=== PATIENT | female | born 1940 | race Two or more races ===

== ENCOUNTER 2022-12-26 08:27 | Emergency (ER) | payer OTHER ==
[~2022-12-26] VITALS: Ht 154.9 cm; Wt 63.6 kg
[2022-12-26] MEDS ORDERED: SODIUM CHLORIDE 0.9% 500 ML IV ONE ×2 (08:45→14:15)
[2022-12-26 10:33] LABS: Hematocrit 31.2 % (36.0-46.0); Hemoglobin 10.3 g/dL (12.2-16.2); Mean Corpuscular Hemoglobin 34.1 pg (28.0-32.0); Mean Corpuscular Volume 103.1 fL (80.0-100.0); Red Blood Cells 3.02 10^6/uL (4.0-5.20); Red Cell Distribution Width 16.9 % (11.8-14.3); White Blood Cell 13.5 10^3/uL (4.4-10.8)
[2022-12-26 10:35] LABS: Band Neutrophils % (manual) 0; Basophils % (manual) 0 (0.0-2.0); Blast Cells 0; Myelocytes % 0; Promyelocytes % 0; Reactive Lymphocytes 0
[2022-12-26 10:49] LABS: Alanine Aminotransferase 21 U/L (7-40); Albumin 3.4 g/dL (3.2-4.8); Alkaline Phosphatase 83 U/L (46-116); Anion Gap 11 (5-15); Aspartate Aminotransferase 34 U/L (13-40); BUN/Creatinine Ratio 41.7 (10.0-20.0); Bilirubin, Total 0.4 mg/dL (0.2-1.0); Blood Urea Nitrogen 15 mg/dL (9-23); Calcium 8.2 mg/dL (8.7-10.4); Carbon Dioxide 21 mmol/L (20-30); Chloride 102 mmol/L (98-107); Glucose 71 mg/dL (74-106); Magnesium 1.9 mg/dL (1.6-2.6); Potassium 4.6 mmol/L (3.5-5.1); Sodium 134 mmol/L (136-145); Total Protein 5.2 g/dL (5.7-8.2)
[2022-12-26 12:53] LABS: Eosinophils % (manual) 1 (0-7); Lymphocytes % (manual) 11 (10.0-50.0); Metamyelocytes % 1; Monocytes % (manual) 8 (0-12); Platelet Estimate Increased
[2022-12-26 12:54] LABS: Macrocytosis Slight
[2022-12-26] MEDS ORDERED: cefTRIAXone 1GM/50ML D5W 50 ML IV ONE (14:15)
[2022-12-26 15:03] VITALS: PULSE 85; RESP 22; O2SAT 96
[2022-12-26 15:56] LABS: COVID19 ANTIGEN SOFIA FIA NEGATIVE (NEGATIVE)
[2022-12-26 16:35] LABS: Urine Bacteria NONE SEEN /hpf (None Seen); Urine Blood 2+ /uL (Negative); Urine Clarity CLOUDY (Clear); Urine Color Yellow (Yellow); Urine Mucus FEW (None Seen); Urine Protein, UAD 2+ (Negative); Urine Specific Gravity 1.018 (1.001-1.035); Urine Urobilinogen Normal (Negative); Urine WBC 4266 /hpf (0 - 5); Urine WBC Clumps PRESENT /hpf (None Seen)
[2022-12-26 20:00] VITALS: PULSE 95; RESP 20; O2SAT 92
[2022-12-26 21:42] VITALS: BP 112/46; PULSE 97; RESP 25; TEMP 98; O2SAT 98
[2022-12-26] MEDS ORDERED: ONDANSETRON HCL 4 MG/2 ML VIAL IM ONE (22:15)
[2022-12-26] MEDS ORDERED: MORPHINE SULFATE 4 MG/ML SYR/VIAL IM ONE (22:15)
== END 2022-12-26 23:06 | disposition short-term general hospital (02) ==
LOC: ER 08:27 → EDBD 08:27 → ER 22:20
DX: R41.82 Altered mental status, unspecified (principal); N39.0 Urinary tract infection, site not specified; R07.89 Other chest pain; I10 Essential (primary) hypertension; Z90.49 Acquired absence of other specified parts of digestive tract; Z90.89 Acquired absence of other organs; Z20.822 Contact with and (suspected) exposure to COVID-19
CPT/HCPCS: 36415; 71045; 80053; 81001; 83605; 83735; 85007; 85027; 87040; 87426; 93005; 96361; 96365; 99285; J0696

== ENCOUNTER 2023-12-30 13:12 | Inpatient (IN) | payer OTHER ==
[~2023-12-30] VITALS: Ht 170.2 cm; Wt 64.6 kg
--- NOTE | 2023-12-30 13:57 | ED.PDOC ---
GI ASSESSMENT HPI Comments 83 year old female OLEKSANDR presents to the ED with chief complaint of abdominal pain. Patient reports that she has been experience 8/10 epigastric abdominal pain with associated nausea, vomiting, and diarrhea for the past 2 days. Patient relays that she has had 10 episodes of watery diarrhea today. Patient denies any fever, chills, dizziness, hematemesis, melena, or chest pain. Chief Complaint: Abdominal Pain Time Seen by MD: 13:54 Primary Care Provider: SEN Reviewed Notes: Nurses Notes, Medications, Allergies Allergies: Coded Allergies: NO KNOWN ALLERGIES (Unverified , 12/26/22) Information Source: Patient Mode of Arrival: EMS Timing: Days Duration: Since onset Prehospital treatment: None Quality: Sharp Vomitus: Watery Stool: Watery Severity: Moderate Recent: None Recent Hx of: None Pain Location: Epigastric Modifying Factors: Nothing Associated sign and symptoms: Nausea, Vomiting, Diarrhea, Abdominal Pain Past Medical History PAST MEDICAL HISTORY: HTN, UTI'S Surgical History: Cholecystectomy, Tonsillectomy 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 Family History Family History: Unknown Social History Smoker: Non-Smoker Alcohol: Denies ETOH Use Drugs: Denies Drug Use Lives In: Home Constitutional: denies: chills, diaphoresis, fatigue, fever, malaise, sweats, weakness, others EENTM: denies: blurred vision, double vision, ear bleeding, ear discharge, ear drainage, ear pain, ear ringing, eye pain, eye redness, hearing loss, mouth pain, mouth swelling, nasal discharge, nose bleeding, nose congestion, nose pain, photophobia, tearing, throat pain, throat swelling, voice changes, others Respiratory: denies: cough, hemoptysis, orthopnea, SOB at rest, shortness of breath, SOB with excertion, stridor, wheezing, others Cardiovascular: denies: chest pain, dizzy spells, diaphoresis, Dyspnea on exertion, edema, irregular heart beat, left arm pain, lightheadedness, palpitations, PND, syncope, others Gastrointestinal: reports: abdominal pain, diarrhea, nausea, vomiting; denies: abdomen distended, blood streaked bowels, constipated, dysphagia, difficulty swallowing, hematemesis, melena, poor appetite, poor fluid intake, rectal bleeding, rectal pain, others Genitourinary: denies: abnormal vagina bleeding, burning, dyspareunia, dysuria, flank pain, frequency, hematuria, incontinence, pain, , vagina discharge, urgency, others Neurological: denies: dizziness, fainting, headache, left sided numbness, left sided weakness, numbness, paresthesia, pre-existing deficit, right sided numbness, right sided weakness, seizure, speech problems, tingling, tremors, weakness, others Musculoskeletal: denies: back pain, gout, joint pain, joint swelling, muscle pain, muscle stiffness, neck pain, others Integumetry: denies: bruises, change in color, change in hair/nails, dryness, laceration, lesions, lumps, rash, wounds, others Allergic/Immunocompromised: denies: Difficulty Healing, Frequent Infections, Hives, Itching, others Hematologic/Lymphatic: denies: anemia, blood clots, easy bleeding, easy bruising, swollen glands, others Endocrine: denies: excessive hunger, excessive sweating, excessive thirst, excessive urination, flushing, intolerance to cold, intolerance to heat, unexp lained weight gain, unexplained weight loss, others Psychiatric: denies: anxiety, bipolar disorder, depression, hopeless, panic disorder, schizophrenia, sleepless, suicidal, others All Other Systems: Reviewed and Negative Physical Exam General Appearance: Moderate Distress, Obese HEENT: Normal ENT Inspection, PERRL/EOMI Neck: Full Range of Motion, Non-Tender, Normal, Normal Inspection Respiratory: Chest Non-Tender, Lungs Clear, No Accessory Muscle Use, No Respiratory Distress, Normal Breath Sounds Cardiovascular: No Edema, No JVD, No Murmur, No Gallop, Normal Peripheral Pulses, Regular Rate/Rhythm Breast Exam: Deferred Gastrointestinal: No Organomegaly, No Pulsatile Mass, Normal Bowel Sounds, Soft, Tenderness (Epigastric tenderness) Genitalia: Deferred Pelvic: Deferred Rectal: Deferred Extremities: No calf tenderness, Normal capillary refill, Normal inspection, Normal range of motion, Non-tender, No pedal edema Musculoskeletal : Apperance: Normal Neurologic: Alert, ict support and test engineers II-XII nml as Tested, No Motor Deficits, Normal Affect, Normal Mood, No Sensory Deficits Cerebellar Function: Normal Reflexes: Normal Skin: Dry, Normal Color, Warm Lymphatic: No Adenopathy Was a procedure done? Was a procedure done?: No GI differential Dx Differential Diagnosis: Gastritis/PUD, Gastroenteritis, UTI, Electrolyte Imbalance, Food Poisoning X-Ray, Labs, Meds, VS Vital Signs Date Time Temp Pulse Resp B/P (MAP) Pulse Ox O2 Delivery O2 Flow Rate FiO2 12/30/23 21:30 93 17 99/49 (66) 99 12/30/23 20:00 95 12/30/23 19:30 98.3 105 14 95/57 (70) 100 98.3 12/30/23 13:20 99 12/30/23 13:15 98.7 102 18 100/70 (80) 94 Lab Test 12/30/23 20:22 12/30/23 13:41 Range/Units Urine Color Light-yellow Yellow Urine Clarity Clear Clear Urine pH 5.5 5.0-9.0 Urine Specific [place] > 1.050 H 1.001-1.035 Urine Protein Trace H Negative Urine Ketones Negative Negative Urine Blood 1+ H Negative /uL Urine Nitrite 2+ H Negative Urine Bilirubin Negative Negative Urine Urobilinogen Normal Negative mg/dL Urine Leukocyte Esterase 3+ Negative /uL Urine RBC 9 0 - 4 /hpf Urine WBC 100 0 - 5 /hpf Urine Squamous Epithelial Cells Few <5 /hpf Urine Bacteria Few H None Seen /hpf Urine Mucus Few None Seen Urine Glucose Normal Normal mg/dL White Blood Count 12.2 H 4.4-10.8 10^3/uL Red Blood Count 4.47 4.0-5.20 10^6/uL Hemoglobin 13.2 12.2-16.2 g/dL Hematocrit 40.4 36.0-46.0 % Mean Corpuscular Volume 90.5 80.0-100.0 fL Mean Corpuscular Hemoglobin 29.5 28.0-32.0 pg Mean Corpuscular Hemoglobin Concent 32.6 32.0-36.0 g/dL Red Cell Distribution Width 19.9 H 11.8-14.3 % Platelet Count 401 140-450 10^3/uL Mean Platelet Volume 7.1 6.9-10.8 fL Neutrophils (%) (Auto) 37.0-80.0 % Lymphocytes (%) (Auto) 10.0-50.0 % Monocytes (%) (Auto) 0.0-12.0 % Basophils (%) (Auto) 0.0-2.0 % Neutrophils # (Auto) 1.6-8.6 10 ^3/uL Lymphocytes # (Auto) 0.4-5.4 10 ^3/uL Monocytes # (Auto) 0-1.3 10 ^3/uL Differential Total Cells Counted 100.0 100 Neutrophils % (Manual) 92 H 37.0-80.0 Band Neutrophils % (Manual) 0 Lymphocytes % (Manual) 3 L 10.0-50.0 Monocytes % (Manual) 5 0-12 Eosinophils % (Manual) 0 0-7 Basophils % (Manual) 0 0.0-2.0 Metamyelocytes % (manual) 0 Myelocytes % (Manual) 0 Promyelocytes % (Manual) 0 Blast Cells % (Manual) 0 Reactive Lymphocytes 0 Platelet Estimate Adequate Red Blood Cell Morphology Normal Sodium Level 143 136-145 mmol/L Potassium Level 3.7 3.5-5.1 mmol/L Chloride Level 106 98-107 mmol/L Carbon Dioxide Level 26 20-31 mmol/L Anion Gap 11 5-15 Blood Urea Nitrogen 35 H 9-23 mg/dL Creatinine 0.73 0.550-1.02 mg/dL Glomerular Filtration Rate Calc 81 >90 mL/min BUN/Creatinine Ratio 47.9 H 10.0-20.0 Serum Glucose 133 H 74-106 mg/dL Calcium Level 9.4 8.7-10.4 mg/dL Total Bilirubin 0.9 0.2-1.0 mg/dL Aspartate Amino Transferase (AST) 19 13-40 U/L Alanine Aminotransferase (ALT) 22 7-40 U/L Alkaline Phosphatase 53 46-116 U/L Troponin I High Sensitivity 13 </=34 ng/L Total Protein 6.7 5.7-8.2 g/dL Albumin 4.3 3.2-4.8 g/dL Lipase 39 12-53 U/L Current Medications Medications (Trade) Dose Ordered Sig/Anette Route Start Time Stop Time Status Last Admin Sodium Chloride 1,000 ml @ 1,000 mls/hr Q1H ONCE IV 12/30/23 13:30 12/30/23 14:29 DC 12/30/23 16:21 Ondansetron HCl (Zofran) 4 mg ONCE ONCE IV 12/30/23 13:30 12/30/23 13:31 DC 12/30/23 16:05 Famotidine (Pepcid Injection) 20 mg ONCE ONCE IV 12/30/23 13:30 12/30/23 13:31 DC 12/30/23 16:05 CT Chest/Abd/Pel W/ IV Con: Impression: Chest: 1. No acute cardiopulmonary disease. 2. 0.8 cm pulmonary nodule along the right lung base. Recommend an outpatient dedicated CT chest for further evaluation. 3. Moderate hiatal hernia. Abdomen: 1. No acute abdominopelvic abnormalities. 2. Diverticulosis without evidence of acute diverticulitis. 3. Mild left hydronephrosis. IV Hep-Lock was established. The patient was given a bolus of normal saline at 1 L The patient was given Zofran 4 mg IV push for the nausea and vomiting The patient was given Pepcid 20 mg IV push. The CBC shows an elevated white blood cell count of 12.2. The rest of the CBC and chemistry panel are within normal limits. The urine test is positive for significant UTI. The patient was remained somewhat hypotensive. We did contact [facility] and they did give authorization for admission The authorization #[id number] The patient was being admitted at this time. Images Reviewed?: Images reviewed and evaluated by me Time of 1ST Reevaluation: 14:54 Reevaluation 1ST: Unchanged Patient Education/Counseling: Diagnosis, Treatment, Prognosis Family Education/Counseling: No Family Present Departure 1 Departure Time of Disposition: 22:01 Impression: Primary Impression: Dehydration Additional Impressions: Hypotension Qualified Codes: I95.9 - Hypotension, unspecified UTI (urinary tract infection) Qualified Codes: N30.01 - Acute cystitis with hematuria Disposition: ADMITTED INPATIENT [facility]mit to: [facility] Condition: Fair Critical Care Note Critical Care Time?: Yes (45 min-critical care time only) Stability Stability form required: Yes Unstable for transfer: Telemetry monitoring (Telemetry monitoring required), ED Physician Assesment (Clinical assesment) Heart Score Heart Score: Heart Score Response (Comments) Value History N/A 0 EKG N/A 0 Age N/A 0 Risk Factors N/A 0 Troponin N/A 0 Total 0 I personally scribed for DUSTIN AMAYA MD ([email or web address]) on 12/30/23 at 13:57. Electronically submitted by Enrique Cuadra ([email or web address]). I personally scribed for DUSTIN AMAYA MD ([email or web address]) on 12/30/23 at 16:31. Electronically submitted by Enrique Cuadra ([email or web address]). DUSTIN AMAYA MD Dec 30, 2023 13:57 NICOLE CASAREZ MD Dec 30, 2023 22:03
[2023-12-30 14:05] LABS: Hematocrit 40.4 % (36.0-46.0); Hemoglobin 13.2 g/dL (12.2-16.2); Mean Corpuscular Hemoglobin 29.5 pg (28.0-32.0); Mean Corpuscular Hgb Conc. 32.6 g/dL (32.0-36.0); Mean Corpuscular Volume 90.5 fL (80.0-100.0); Platelet Count (auto) 401 10^3/uL (140-450); Red Blood Cells 4.47 10^6/uL (4.0-5.20); Red Cell Distribution Width 19.9 % (11.8-14.3); White Blood Cell 12.2 10^3/uL (4.4-10.8)
[2023-12-30 14:12] LABS: Band Neutrophils % (manual) 0; Basophils % (manual) 0 (0.0-2.0); Blast Cells 0; Eosinophils % (manual) 0 (0-7); Metamyelocytes % 0; Myelocytes % 0; Promyelocytes % 0; Reactive Lymphocytes 0
[2023-12-30 14:19] LABS: Alanine Aminotransferase 22 U/L (7-40); Albumin 4.3 g/dL (3.2-4.8); Alkaline Phosphatase 53 U/L (46-116); Anion Gap 11 (5-15); Aspartate Aminotransferase 19 U/L (13-40); BUN/Creatinine Ratio 47.9 (10.0-20.0); Blood Urea Nitrogen 35 mg/dL (9-23); Calcium 9.4 mg/dL (8.7-10.4); Carbon Dioxide 26 mmol/L (20-31); Chloride 106 mmol/L (98-107); Glucose 133 mg/dL (74-106); Lipase 39 U/L (12-53); Potassium 3.7 mmol/L (3.5-5.1); Sodium 143 mmol/L (136-145)
[2023-12-30 14:20] LABS: Bilirubin, Total 0.9 mg/dL (0.2-1.0); Total Protein 6.7 g/dL (5.7-8.2)
[2023-12-30 14:34] LABS: Lymphocytes % (manual) 3 (10.0-50.0); Monocytes % (manual) 5 (0-12); Platelet Estimate Adequate
[2023-12-30 14:35] LABS: RBC Morphology Normal
[2023-12-30] MEDS: IOHEXOL 300 MG/ML 100ML BOTTLE IJ ONE (15:36)
[2023-12-30] MEDS: ONDANSETRON HCL 4 MG/2 ML VIAL IV ONE (16:05)
[2023-12-30] MEDS: FAMOTIDINE (10MG/ML) 2ML VL IV ONE (16:05)
[2023-12-30] MEDS: SODIUM CHLORIDE 0.9% 1,000 ML IV ONE (16:21)
--- NOTE | 2023-12-30 16:28 | DVH ---
CT CT CHEST/AB/PL W CON- IV ONLY HISTORY: abdominal pain Comparison Study: None TECHNIQUE: Multidetector CT of the chest, abdomen and pelvis was performed from lower neck to pubic s ymphysis with the use of intravenous contrast. Axial, coronal and sagittal multiplanar reformats were performed by the technologist on a separate workstation. Radiation Dose : CTDI vol 6.41 mGy, DLP 403.31 mGy*cm. Findings: Chest: Lungs: 0.8 cm pulmonary nodule along the right lung base. Pleura: Unremarkable Heart/Great vessels: The visualized heart is unremarkable. No cardiomegaly or pericardial effusion. Mediastinum: Moderate hiatal hernia Soft tissues/Bones: Mild degenerative changes of the thoracic spine. Abdomen: Liver: Unremarkable. Gallbladder: Unremarkable. Spleen: Unremarkable Pancreas: Unremarkable Adrenals: Unremarkable Kidneys: Mild left hydronephrosis. GI tract: Diverticulosis without evidence of acute diverticulitis. : Myomatous uterus Vasculature: Unremarkable Lymphadenopathy: Absent Peritoneum: No ascites Musculoskeletal: Moderate multilevel degenerative changes of the thoracolumbar spine. Posterior spina l fusion L3-S1. Soft tissues: Unremarkable Impression: Chest: 1. No acute cardiopulmonary disease. 2. 0.8 cm pulmonary nodule along the right lung base. Recommend an outpatient dedicated CT chest for further evaluation. 3. Moderate hiatal hernia. Abdomen: 1. No acute abdominopelvic abnormalities. 2. Diverticulosis without evidence of acute diverticulitis. 3. Mild left hydronephrosis.
[2023-12-30 20:42] LABS: Urine Bacteria FEW /hpf (None Seen); Urine Blood 1+ /uL (Negative); Urine Clarity Clear (Clear); Urine Color Light-Yellow (Yellow); Urine Mucus FEW (None Seen); Urine Protein, UAD TRACE (Negative); Urine Urobilinogen Normal (Negative); Urine WBC 100 /hpf (0 - 5); Urine pH 5.5 (5.0-9.0)
[2023-12-30 20:44] LABS: Urine Specific Gravity > 1.050 (1.001-1.035)
[2023-12-30] MEDS: SODIUM CHLORIDE 0.9% 500 ML IV ONE (22:00)
[2023-12-30] MEDS ORDERED: ACETAMINOPHEN 325 MG TAB PO PRN (23:15)
[2023-12-30] MEDS: cefTRIAXone 1GM/50ML D5W 50 ML IV ONE (23:58)
[2023-12-31] MEDS: HYDROcodone-ACET 5/325MG TAB PO PRN (00:51)
[2023-12-31] MEDS: MORPHINE SULFATE INJ 2 MG/ml SYRG IV ONE (00:57)
[2023-12-31] MEDS: SODIUM CHLORIDE 0.9% 500 ML IV ONE (02:45)
[2023-12-31 03:57] VITALS: PULSE 79; RESP 16; O2SAT 96
--- NOTE | 2023-12-31 05:27 | DVHHP2 ---
History of Present Illness Reason for Visit: Nausea and vomiting History of Present Illness 83-year-old female initially presented with complaints of nausea and vomiting. Patient reports a one day history of episodes of nausea, vomiting and several episodes of diarrhea. She denies abdominal pain. She states currently the sym ptoms have subsided. She does report mild dysuria. Denies fever or chills. No other acute complaints reported. Past Medical History Hypertension Past Surgical History Tonsillectomy and cholecystectomy Family History Noncontributory Smoke: No ALCOHOL: none Drugs: None Review of Systems Review of Systems Review of systems are currently negative otherwise addressed in HPI. Allergies: Coded Allergies: NO KNOWN ALLERGIES (Unverified , 12/26/22) Medications Current Medications Medications Dose Ordered Sig/Anette Route Start Time Stop Time Status Last Admin Dose Admin Ceftriaxone Sodium 50 ml @ 100 mls/hr DAILY@2200 IV 12/31/23 22:00 Acetaminophen/ Hydrocodone Bitart 1 tab Q4HP PRN PO 12/30/23 23:15 12/31/23 00:51 1 TAB Ondansetron HCl 4 mg Q4HP PRN IV 12/30/23 23:15 Acetaminophen 650 mg Q6HP PRN PO 12/30/23 23:15 Exam Vital Signs Vital Signs Date Time Temp Pulse Resp B/P (MAP) Pulse Ox O2 Delivery O2 Flow Rate FiO2 12/31/23 03:57 79 16 96 Room Air* 0 21 21 12/31/23 03:30 92/42 (59) 12/30/23 19:30 98.3 98.3 Exam Gen: 83-year-old female in mild distress Skin: Warm, dry, normal color and texture, no rash. HEENT: Normocephalic atraumatic, mucous membranes moist and pink. Neck: Cervical and supraclavicular nodes normal without enlargement, trachea is midline, thyroid gland is normal without masses. Pulmonary: Clear to auscultation and percussion bilaterally. Cardiac: Regular rate and rhythm. No murmur Abdomen: Soft, nontender, nondistended, bowel sounds present all 4 quadrants, no guarding, no rigidity, no organomegaly. Extremities: No cyanosis, clubbing, no edema Neuro: Cranial nerves II through XII grossly intact, normal affect and speech, no focal motor deficits. Labs/Xrays ORDERING PHYSICIAN: DUSTIN AMAYA MD PROCEDURE(s): CAPIV - CT CHEST/AB/PL W CON- IV ONLY REASON: abdominal pain ORDER NUMBER(s): [id number], ACCESSION NUMBER(s): [id number] CT CT CHEST/AB/PL W CON- IV ONLY HISTORY: abdominal pain Comparison Study: None TECHNIQUE: Multidetector CT of the chest, abdomen and pelvis was performed from lower neck to pubic symphysis with the use of intravenous contrast. Axial, coronal and sagittal multiplanar reformats were performed by the technologist on a separate workstation. Radiation Dose : CTDI vol 6.41 mGy, DLP 403.31 mGy*cm. Findings: Chest: Lungs: 0.8 cm pulmonary nodule along the right lung base. Pleura: Unremarkable Heart/Great vessels: The visualized heart is unremarkable. No cardiomegaly or pericardial effusion. Mediastinum: Moderate hiatal hernia Soft tissues/Bones: Mild degenerative changes of the thoracic spine. Abdomen: Liver: Unremarkable. Gallbladder: Unremarkable. Spleen: Unremarkable Pancreas: Unremarkable Adrenals: Unremarkable Kidneys: Mild left hydronephrosis. GI tract: Diverticulosis without evidence of acute diverticulitis. : Myomatous uterus Vasculature: Unremarkable Lymphadenopathy: Absent Peritoneum: No ascites Musculoskeletal: Moderate multilevel degenerative changes of the thoracolumbar spine. Posterior spinal fusion L3-S1. Soft tissues: Unremarkable Impression: Chest: 1. No acute cardiopulmonary disease. 2. 0.8 cm pulmonary nodule along the right lung base. Recommend an outpatient dedicated CT chest for further evaluation. 3. Moderate hiatal hernia. Abdomen: 1. No acute abdominopelvic abnormalities. 2. Diverticulosis without evidence of acute diverticulitis. 3. Mild left hydronephrosis. Labs Test 12/30/23 23:25 12/30/23 20:22 12/30/23 13:41 Range/Units Lactic Acid Level 1.3 0.4-2.0 mmol/L Urine Color Light-yellow Yellow Urine Clarity Clear Clear Urine pH 5.5 5.0-9.0 Urine Specific [place] > 1.050 H 1.001-1.035 Urine Protein Trace H Negative Urine Ketones Negative Negative Urine Blood 1+ H Negative /uL Urine Nitrite 2+ H Negative Urine Bilirubin Negative Negative Urine Urobilinogen Normal Negative mg/dL Urine Leukocyte Esterase 3+ Negative /uL Urine RBC 9 0 - 4 /hpf Urine WBC 100 0 - 5 /hpf Urine Squamous Epithelial Cells Few <5 /hpf Urine Bacteria Few H None Seen /hpf Urine Mucus Few None Seen Urine Glucose Normal Normal mg/dL White Blood Count 12.2 H 4.4-10.8 10^3/uL Red Blood Count 4.47 4.0-5.20 10^6/uL Hemoglobin 13.2 12.2-16.2 g/dL Hematocrit 40.4 36.0-46.0 % Mean Corpuscular Volume 90.5 80.0-100.0 fL Mean Corpuscular Hemoglobin 29.5 28.0-32.0 pg Mean Corpuscular Hemoglobin Concent 32.6 32.0-36.0 g/dL Red Cell Distribution Width 19.9 H 11.8-14.3 % Platelet Count 401 140-450 10^3/uL Mean Platelet Volume 7.1 6.9-10.8 fL Neutrophils (%) (Auto) 37.0-80.0 % Lymphocytes (%) (Auto) 10.0-50.0 % Monocytes (%) (Auto) 0.0-12.0 % Basophils (%) (Auto) 0.0-2.0 % Neutrophils # (Auto) 1.6-8.6 10 ^3/uL Lymphocytes # (Auto) 0.4-5.4 10 ^3/uL Monocytes # (Auto) 0-1.3 10 ^3/uL Differential Total Cells Counted 100.0 100 Neutrophils % (Manual) 92 H 37.0-80.0 Band Neutrophils % (Manual) 0 Lymphocytes % (Manual) 3 L 10.0-50.0 Monocytes % (Manual) 5 0-12 Eosinophils % (Manual) 0 0-7 Basophils % (Manual) 0 0.0-2.0 Metamyelocytes % (manual) 0 Myelocytes % (Manual) 0 Promyelocytes % (Manual) 0 Blast Cells % (Manual) 0 Reactive Lymphocytes 0 Platelet Estimate Adequate Red Blood Cell Morphology Normal Sodium Level 143 136-145 mmol/L Potassium Level 3.7 3.5-5.1 mmol/L Chloride Level 106 98-107 mmol/L Carbon Dioxide Level 26 20-31 mmol/L Anion Gap 11 5-15 Blood Urea Nitrogen 35 H 9-23 mg/dL Creatinine 0.73 0.550-1.02 mg/dL Glomerular Filtration Rate Calc 81 >90 mL/min BUN/Creatinine Ratio 47.9 H 10.0-20.0 Serum Glucose 133 H 74-106 mg/dL Calcium Level 9.4 8.7-10.4 mg/dL Total Bilirubin 0.9 0.2-1.0 mg/dL Aspartate Amino Transferase (AST) 19 13-40 U/L Alanine Aminotransferase (ALT) 22 7-40 U/L Alkaline Phosphatase 53 46-116 U/L Troponin I High Sensitivity 13 </=34 ng/L Total Protein 6.7 5.7-8.2 g/dL Albumin 4.3 3.2-4.8 g/dL Lipase 39 12-53 U/L Assessment/Plan Assessment/Plan Assessment Complicated UTI SIRS Hypotension Leukocytosis Plan Admit the patient to [facility] to the hospitalist Rocephin Normal saline bolus Stool bacterial culture pending. Continue treatment per orders. Plan discussed with: Patient My Orders Orders - LAURA MARTIN Procedure Category Date Status Time Ceftriaxone 1gm/50ml PHA 12/31/23 In Process D5w (Rocephin) 22:00 Basic Metabolic Panel LAB 12/31/23 Logged 04:00 Admit ADMIT 12/30/23 Transmitted 23:05 Hydrocodone-Acet PHA 12/30/23 In Process 5/325mg Tab ([place] 23:15 Ondansetron Hcl PHA 12/30/23 In Process (Zofran) 23:15 Complete Blood Count LAB 12/31/23 Logged 04:00 Cardiac DIET 12/31/23 Transmitted Diet-2gna,Lofat,Lochol Breakfast Condition: Stable KWAKU 12/30/23 In Process 23:05 Acetaminophen Tablet PHA 12/30/23 In Process (Tylenol Tablet) 23:15 Bedrest With Bathroom KWAKU 12/30/23 In Process Privileg 23:05 Stool Bacterial EBONY 12/31/23 Uncollected Culture 05:20 Date of Service: Dec 30, 2023 Billing Provider: LAURA MARTIN Common Visit Codes: [id number] INP/OBS CARE (MOD), [id number] INP/OBS CARE (HIGH) LAURA MARTIN Dec 31, 2023 05:27
[2023-12-31 06:06] LABS: Basophils # (auto) 0 10 ^3/uL (0-0.2); Basophils % (auto) 0.3 % (0.0-2.0); Eosinophils # (auto) 0 10 ^3/uL (0-0.8); Eosinophils % (auto) 0.2 % (0.0-7.0); Hematocrit 32.3 % (36.0-46.0); Hemoglobin 10.4 g/dL (12.2-16.2); Lymphocytes # (auto) 0.6 10 ^3/uL (0.4-5.4); Lymphocytes % (auto) 7.1 % (10.0-50.0); Mean Corpuscular Hemoglobin 29.5 pg (28.0-32.0); Mean Corpuscular Hgb Conc. 32.1 g/dL (32.0-36.0); Mean Corpuscular Volume 91.8 fL (80.0-100.0); Monocytes # (auto) 0.6 10 ^3/uL (0-1.3); Monocytes % (auto) 6.8 % (0.0-12.0); Neutrophils % (auto) 85.6 % (37.0-80.0); Nucleated Red Blood Cells % 0.1 %; Platelet Count (auto) 308 10^3/uL (140-450); Red Blood Cells 3.52 10^6/uL (4.0-5.20); Red Cell Distribution Width 19.2 % (11.8-14.3); White Blood Cell 8.1 10^3/uL (4.4-10.8)
[2023-12-31 06:23] LABS: Chloride 110 mmol/L (98-107); Potassium 3.1 mmol/L (3.5-5.1); Sodium 142 mmol/L (136-145)
[2023-12-31 06:24] LABS: Anion Gap 9 (5-15); Carbon Dioxide 23 mmol/L (20-31)
[2023-12-31 06:25] LABS: Calcium 7.8 mg/dL (8.7-10.4)
[2023-12-31 06:29] LABS: BUN/Creatinine Ratio 38.3 (10.0-20.0); Blood Urea Nitrogen 23 mg/dL (9-23); Glucose 79 mg/dL (74-106)
[2023-12-31 08:00] VITALS: PULSE 78; RESP 77; O2SAT 94
[2023-12-31] MEDS: POTASSIUM CHL 20 Meq TABLET PO ONE (08:29)
--- NOTE | 2023-12-31 12:18 | DVHPN2 ---
Subjective 83-YEAR-OLD FEMALE CAME TO THE EMERGENCY ROOM DUE TO COMPLAINTS OF NAUSEA AND VOMITING AND DIARRHEA SHE SAYS SHE HAD DIARRHEA FOR 2 DAYS MULTIPLE TIMES A DAY HER POTASSIUM IS LOW HER BLOOD PRESSURE WAS ALSO LOW SHE HAS MILD ABDOMINAL PAIN Changes from previous H/P or p: Changes Objective Vitals Vital Signs Date Time Temp Pulse Resp B/P (MAP) Pulse Ox O2 Delivery O2 Flow Rate FiO2 12/31/23 10:04 97.8 77 16 120/78 (92) 98 97.8 12/31/23 08:00 Nasal Cannula* 2 28 General Appearance: Alert, Oriented X3, Cooperative, No acute distress Lungs: Clear to auscultation, Normal air movement Cardiovascular: Regular rate, Normal S1, Normal S2, No murmurs Abdomen: Normal bowel sounds, Soft, No tenderness Extremities: No edema Medications Current Medications Medications Dose Ordered Sig/Anette Route Start Time Stop Time Status Last Admin Dose Admin Ceftriaxone Sodium 50 ml @ 100 mls/hr DAILY@2200 IV 12/31/23 22:00 Acetaminophen/ Hydrocodone Bitart 1 tab Q4HP PRN PO 12/30/23 23:15 12/31/23 00:51 1 TAB Ondansetron HCl 4 mg Q4HP PRN IV 12/30/23 23:15 Acetaminophen 650 mg Q6HP PRN PO 12/30/23 23:15 Sodium Chloride 1,000 ml @ 60 mls/hr [id number] IV 12/31/23 12:00 Laboratory Results Laboratory Tests 12/31/23 05:16 Chemistry Test 12/30/23 13:41 12/31/23 05:16 Albumin 4.3 g/dL (3.2-4.8) Calcium Level 9.4 mg/dL (8.7-10.4) 7.8 mg/dL (8.7-10.4) L Total Protein 6.7 g/dL (5.7-8.2) Lipid panel Test 12/30/23 13:41 Lipase 39 U/L (12-53) LFT Test 12/30/23 13:41 Alanine Aminotransferase (ALT) 22 U/L (7-40) Alkaline Phosphatase 53 U/L (46-116) Aspartate Amino Transferase (AST) 19 U/L (13-40) Total Bilirubin 0.9 mg/dL (0.2-1.0) Urinalysis Test 12/30/23 20:22 Urine Color Light-yellow (Yellow) Urine Clarity Clear (Clear) Urine pH 5.5 (5.0-9.0) Urine Specific [place] > 1.050 (1.001-1.035) Urine Protein Trace (Negative) H Urine Ketones Negative (Negative) Urine Blood 1+ /uL (Negative) H Urine Nitrite 2+ (Negative) H Urine Bilirubin Negative (Negative) Urine Urobilinogen Normal mg/dL (Negative) Urine Leukocyte Esterase 3+ /uL (Negative) Urine RBC 9 /hpf (0 - 4) Urine WBC 100 /hpf (0 - 5) Urine Squamous Epithelial Cells Few /hpf (<5) Urine Bacteria Few /hpf (None Seen) H Urine Mucus Few (None Seen) Urine Glucose Normal mg/dL (Normal) Assessment/Plan Assessment/Plan DIARRHEA UTI HYPOKALEMIA SIRS ACUTE KIDNEY INJURY DIVERTICULOSIS LEFT HYDRONEPHROSIS ABDOMINAL PAIN PERIPHERAL NEUROPATHY HYPERTENSION PLAN CONTINUE IV FLUIDS CHANGE DIET TO CLEAR LIQUIDS CONTINUE IV ROCEPHIN GET THE STOOL SPECIMEN FOR C DIFF CHECK INFLUENZA AND COVID REPLACE POTASSIUM NOT STABLE FOR TRANSFER FULL CODE ADVANCE DIRECTIVES DISCUSSED FOR MORE THAN 20 MINUTES Plan discussed with: Patient My Orders Orders - CLAIRE BARKER MD Procedure Category Date Status Time Urine Bacterial EBONY 12/31/23 In Process Culture 11:59 Sodium Chloride 0.9% PHA 12/31/23 In Process 12:00 Date of Service: Dec 31, 2023 Billing Provider: CLAIRE BARKER MD Common Visit Codes: [id number] INP/OBS CARE(HIGH) Secondary Visit Codes: [id number] CARE PLAN 30 MINUTES CLAIRE BARKER MD Dec 31, 2023 12:18
[2023-12-31] MEDS: SODIUM CHLORIDE 0.9% 1,000 ML IV SCH (12:22)
[2023-12-31] MEDS: ONDANSETRON HCL 4 MG/2 ML VIAL IV PRN (12:22)
--- NOTE | 2023-12-31 12:34 | ECG ---
[facility] Test Date: 2023-12-30 Test Time: 13:20:58 Pat Name: NICOLE JOHNSON Department: ED Room: 0245 Gender: F Corporate Controller: GINA : 1940 Requested By: DUSTIN AMAYA Order Number: [id number] Reading MD: Inocente Dickerson Measurements Intervals [place] Rate: 99 P: 41 ND: 142 QRS: -53 QRSD: 113 T: 121 QT: 358 QTc: 460 Interpretive Statements Sinus tachycardia Multiple premature complexes, vent & supraven Probable left atrial enlargement LVH with IVCD, LAD and secondary repol abnrm Baseline wander in lead(s) V3 Electronically Signed On 01-01-2024 17:36:57 PST by Inocente Dickerson Please click the below link to view image of tracing.
[2023-12-31 13:07] LABS: COVID19 ANTIGEN SOFIA FIA NEGATIVE (NEGATIVE)
[2023-12-31 13:08] LABS: Rapid Influenza A Negative (Negative); Rapid Influenza B Negative (Negative)
[2023-12-31] MEDS: GABAPENTIN 100 MG CAP PO SCH (13:39)
[2023-12-31 14:30] VITALS: BP 119/67; PULSE 77; RESP 15; TEMP 98; O2SAT 94
[2023-12-31 14:32] VITALS: BP 116/58; PULSE 72; RESP 17; TEMP 98.4; O2SAT 95
[2023-12-31 17:15] VITALS: BP 116/58; PULSE 72; RESP 17; TEMP 98.4
[2023-12-31 21:00] VITALS: BP 126/63; PULSE 83; RESP 20; TEMP 98.4; O2SAT 98
[2023-12-31] MEDS: cefTRIAXone 1GM/50ML D5W 50 ML IV SCH (22:28)
[2024-01-01 05:14] VITALS: BP 127/64; PULSE 80; RESP 20; TEMP 98.7; O2SAT 98
[2024-01-01 06:19] LABS: Basophils # (auto) 0 10 ^3/uL (0-0.2); Basophils % (auto) 0.5 % (0.0-2.0); Eosinophils # (auto) 0 10 ^3/uL (0-0.8); Eosinophils % (auto) 0.6 % (0.0-7.0); Hematocrit 34.2 % (36.0-46.0); Hemoglobin 10.8 g/dL (12.2-16.2); Lymphocytes # (auto) 0.8 10 ^3/uL (0.4-5.4); Lymphocytes % (auto) 9.9 % (10.0-50.0); Mean Corpuscular Hemoglobin 29.5 pg (28.0-32.0); Mean Corpuscular Hgb Conc. 31.5 g/dL (32.0-36.0); Mean Corpuscular Volume 93.5 fL (80.0-100.0); Monocytes # (auto) 0.7 10 ^3/uL (0-1.3); Neutrophils # (auto) 6.6 10 ^3/uL (1.6-8.6); Nucleated Red Blood Cells % 0.1 %; Platelet Count (auto) 281 10^3/uL (140-450); Red Blood Cells 3.66 10^6/uL (4.0-5.20); Red Cell Distribution Width 19.3 % (11.8-14.3); White Blood Cell 8.2 10^3/uL (4.4-10.8)
[2024-01-01 06:47] LABS: Alanine Aminotransferase 16 U/L (7-40); Alkaline Phosphatase 40 U/L (46-116); Anion Gap 7 (5-15); Aspartate Aminotransferase 15 U/L (13-40); Blood Urea Nitrogen 10 mg/dL (9-23); Calcium 7.8 mg/dL (8.7-10.4); Carbon Dioxide 24 mmol/L (20-31); Chloride 108 mmol/L (98-107); Glucose 72 mg/dL (74-106); Sodium 139 mmol/L (136-145)
[2024-01-01 06:48] LABS: Albumin 3.4 g/dL (3.2-4.8); Bilirubin, Total 0.4 mg/dL (0.2-1.0); Total Protein 5.6 g/dL (5.7-8.2)
[2024-01-01 09:00] VITALS: BP 125/63; PULSE 79; RESP 20; TEMP 99.2; O2SAT 98
--- NOTE | 2024-01-01 10:20 | DVHPN2 ---
Subjective He is complaining of chest pain right now She feels might be acid reflux It is burning and pressure sensation Changes from previous H/P or p: Changes Objective Vitals Vital Signs Date Time Temp Pulse Resp B/P (MAP) Pulse Ox O2 Delivery O2 Flow Rate FiO2 01/01/24 09:00 99.2 79 20 125/63 (83) 98 99.2 12/31/23 20:00 Room Air* 0 21 Intake/Output Intake and Output 01/01/24 07:00 Intake Total 720 ml Output Total 750 ml Balance -30 ml Intake Oral 600 ml IV Total 120 ml Output Urine Total 750 ml General Appearance: Alert, Oriented X3, Cooperative, No acute distress Lungs: Clear to auscultation, Normal air movement Cardiovascular: Regular rate, Normal S1, Normal S2, No murmurs Abdomen: Normal bowel sounds, Soft, No tenderness Extremities: No edema Medications Current Medications Medications Dose Ordered Sig/Anette Route Start Time Stop Time Status Last Admin Dose Admin Ceftriaxone Sodium 50 ml @ 100 mls/hr DAILY@2200 IV 12/31/23 22:00 12/31/23 22:28 100 MLS/HR Acetaminophen/ Hydrocodone Bitart 1 tab Q4HP PRN PO 12/30/23 23:15 12/31/23 19:03 1 TAB Ondansetron HCl 4 mg Q4HP PRN IV 12/30/23 23:15 12/31/23 12:22 4 MG Acetaminophen 650 mg Q6HP PRN PO 12/30/23 23:15 Sodium Chloride 1,000 ml @ 60 mls/hr [id number] IV 12/31/23 12:00 01/01/24 07:05 60 MLS/HR Gabapentin 200 mg TID PO 12/31/23 14:00 01/01/24 07:01 200 MG Laboratory Results Laboratory Tests 01/01/24 05:30 Chemistry Test 01/01/24 05:30 Albumin 3.4 g/dL (3.2-4.8) Calcium Level 7.8 mg/dL (8.7-10.4) L Magnesium Level 2.0 mg/dL (1.6-2.6) Total Protein 5.6 g/dL (5.7-8.2) L LFT Test 01/01/24 05:30 Alanine Aminotransferase (ALT) 16 U/L (7-40) Alkaline Phosphatase 40 U/L (46-116) L Aspartate Amino Transferase (AST) 15 U/L (13-40) Total Bilirubin 0.4 mg/dL (0.2-1.0) Urinalysis Test 12/30/23 20:22 Urine Color Light-yellow (Yellow) Urine Clarity Clear (Clear) Urine pH 5.5 (5.0-9.0) Urine Specific [place] > 1.050 (1.001-1.035) Urine Protein Trace (Negative) H Urine Ketones Negative (Negative) Urine Blood 1+ /uL (Negative) H Urine Nitrite 2+ (Negative) H Urine Bilirubin Negative (Negative) Urine Urobilinogen Normal mg/dL (Negative) Urine Leukocyte Esterase 3+ /uL (Negative) Urine RBC 9 /hpf (0 - 4) Urine WBC 100 /hpf (0 - 5) Urine Squamous Epithelial Cells Few /hpf (<5) Urine Bacteria Few /hpf (None Seen) H Urine Mucus Few (None Seen) Urine Glucose Normal mg/dL (Normal) Assessment/Plan Assessment/Plan DIARRHEA UTI HYPOKALEMIA SIRS ACUTE KIDNEY INJURY DIVERTICULOSIS LEFT HYDRONEPHROSIS ABDOMINAL PAIN PERIPHERAL NEUROPATHY HYPERTENSION PLAN CONTINUE IV FLUIDS CHANGE DIET TO CLEAR LIQUIDS CONTINUE IV ROCEPHIN GET THE STOOL SPECIMEN FOR C DIFF CHECK INFLUENZA AND COVID REPLACE POTASSIUM NOT STABLE FOR TRANSFER FULL CODE ADVANCE DIRECTIVES DISCUSSED FOR MORE THAN 20 MINUTES 01/01/2024: Chest pain, most likely GERD, start Protonix, Mylanta p.r.n., get an EKG, get troponin UTI: IV ceftriaxone Dehydration: Continue IV fluids Diarrhea: Resolved Discontinue Taylor catheter Physical therapy evaluation Out of bed as tolerated Not stable for transfer Plan discussed with: Patient My Orders Orders - CLAIRE BARKER MD Procedure Category Date Status Time Urine Bacterial EBONY 12/31/23 In Process Culture 11:59 Sodium Chloride 0.9% PHA 12/31/23 In Process 12:00 Clostridium Difficile EBONY 12/31/23 Uncollected Toxin 12:14 Clear Liq Diet DIET 12/31/23 Transmitted Lunch Gabapentin Capsule PHA 12/31/23 In Process (Neurontin Capsule) 14:00 Code Status CODE 12/31/23 Transmitted 12:17 Insert Midline ORDERS 12/31/23 Transmitted 13:17 * Wound Consult CONS 12/31/23 Transmitted Date of Service: Jan 01, 2024 Billing Provider: CLAIRE BARKER MD Common Visit Codes: [id number] INP/OBS CARE(HIGH) CLAIRE BARKER MD Jan 01, 2024 10:20
[2024-01-01] MEDS: MAALOX PLUS or MAALOX 30 ML PO ONE (10:52)
[2024-01-01] MEDS: PANTOPRAZOLE 40 MG TAB PO ONE (10:53)
[2024-01-01 13:00] VITALS: BP 117/57; PULSE 71; RESP 20; TEMP 97.9; O2SAT 100
[2024-01-01] MEDS ORDERED: MELO7.5T7 PO (15:13)
[2024-01-01] MEDS ORDERED: METH2.5T PO (15:14)
[2024-01-01 16:52] VITALS: BP 120/55; PULSE 73; RESP 20; TEMP 98.8; O2SAT 97
[2024-01-01 21:00] VITALS: BP 121/59; PULSE 69; RESP 17; TEMP 97.6; O2SAT 100
[2024-01-02] VITALS (7 sets, daily range): BP systolic 109–147; BP diastolic 54–70; PULSE 68–88; RESP 17–18; TEMP 97.6–98.3; O2SAT 94–99
[2024-01-02] MEDS: PANTOPRAZOLE 40 MG TAB PO SCH (05:52)
[2024-01-02 07:36] LABS: Anion Gap 6 (5-15); Calcium 8.4 mg/dL (8.7-10.4); Carbon Dioxide 27 mmol/L (20-31); Chloride 108 mmol/L (98-107); Potassium 3.9 mmol/L (3.5-5.1); Sodium 141 mmol/L (136-145)
[2024-01-02 07:43] LABS: BUN/Creatinine Ratio 12.2 (10.0-20.0); Blood Urea Nitrogen 5 mg/dL (9-23); Glucose 82 mg/dL (74-106)
[2024-01-02] MEDS: MEROPENEM 1GM IVPB 50 ML IV SCH (13:10)
--- NOTE | 2024-01-02 15:07 | DVHPN2 ---
Subjective Feels somewhat better Urine culture came back E coli ESBL Changes from previous H/P or p: Changes Objective Vitals Vital Signs Date Time Temp Pulse Resp B/P (MAP) Pulse Ox O2 Delivery O2 Flow Rate FiO2 01/02/24 13:00 98.3 73 18 109/61 (77) 95 98.3 01/02/24 08:00 Room Air* 0 21 Intake/Output Intake and Output 01/02/24 07:00 Intake Total 1750 ml Balance 1750 ml Intake Oral 1700 ml IV Total 50 ml # Voids 6 General Appearance: Alert, Oriented X3, Cooperative, No acute distress Lungs: Clear to auscultation, Normal air movement Cardiovascular: Regular rate, Normal S1, Normal S2, No murmurs Abdomen: Normal bowel sounds, Soft, No tenderness Extremities: No edema Medications Current Medications Medications Dose Ordered Sig/Anette Route Start Time Stop Time Status Last Admin Dose Admin Acetaminophen/ Hydrocodone Bitart 1 tab Q4HP PRN PO 12/30/23 23:15 01/02/24 00:50 1 TAB Ondansetron HCl 4 mg Q4HP PRN IV 12/30/23 23:15 12/31/23 12:22 4 MG Acetaminophen 650 mg Q6HP PRN PO 12/30/23 23:15 Sodium Chloride 1,000 ml @ 60 mls/hr [id number] IV 12/31/23 12:00 01/02/24 13:10 60 MLS/HR Gabapentin 200 mg TID PO 12/31/23 14:00 01/02/24 13:08 200 MG Pantoprazole Sodium 40 mg DAILY@0600 PO 01/02/24 06:00 01/02/24 05:52 40 MG Meropenem 50 ml @ 17 mls/hr Q12H IV 01/02/24 12:00 01/02/24 13:10 17 MLS/HR Laboratory Results Laboratory Tests 01/01/24 05:30 01/02/24 06:38 Chemistry Test 01/02/24 06:38 Calcium Level 8.4 mg/dL (8.7-10.4) L Urinalysis Test 12/30/23 20:22 Urine Color Light-yellow (Yellow) Urine Clarity Clear (Clear) Urine pH 5.5 (5.0-9.0) Urine Specific [place] > 1.050 (1.001-1.035) Urine Protein Trace (Negative) H Urine Ketones Negative (Negative) Urine Blood 1+ /uL (Negative) H Urine Nitrite 2+ (Negative) H Urine Bilirubin Negative (Negative) Urine Urobilinogen Normal mg/dL (Negative) Urine Leukocyte Esterase 3+ /uL (Negative) Urine RBC 9 /hpf (0 - 4) Urine WBC 100 /hpf (0 - 5) Urine Squamous Epithelial Cells Few /hpf (<5) Urine Bacteria Few /hpf (None Seen) H Urine Mucus Few (None Seen) Urine Glucose Normal mg/dL (Normal) Microbiology Microbiology Date/Time Source Procedure Growth Status 12/31/23 11:53 Voided Urine Urine Culture - Final Escherichia coli - ESBL Complete Assessment/Plan Assessment/Plan DIARRHEA UTI HYPOKALEMIA SIRS ACUTE KIDNEY INJURY DIVERTICULOSIS LEFT HYDRONEPHROSIS ABDOMINAL PAIN PERIPHERAL NEUROPATHY HYPERTENSION PLAN CONTINUE IV FLUIDS CHANGE DIET TO CLEAR LIQUIDS CONTINUE IV ROCEPHIN GET THE STOOL SPECIMEN FOR C DIFF CHECK INFLUENZA AND COVID REPLACE POTASSIUM NOT STABLE FOR TRANSFER FULL CODE ADVANCE DIRECTIVES DISCUSSED FOR MORE THAN 20 MINUTES 01/01/2024: Chest pain, most likely GERD, start Protonix, Mylanta p.r.n., get an EKG, get troponin UTI: IV ceftriaxone Dehydration: Continue IV fluids Diarrhea: Resolved Discontinue Taylor catheter Physical therapy evaluation Out of bed as tolerated Not stable for transfer 01/02/2024: UTI with E coli ESBL change Rocephin to meropenem IV Dehydration: Continue IV fluids Diarrhea: Resolved Generalized weakness: Physical therapy Not stable for transfer Plan discussed with: Patient My Orders Orders - CLAIRE BARKER MD Procedure Category Date Status Time Apply Barrier Cream [facility] 01/01/24 In Process 11:30 Cleanse Wound With KWAKU 01/01/24 In Process Wound Clean 11:30 * Dietary Consult CONS 01/01/24 Transmitted 17:31 Cardiac DIET 01/02/24 Transmitted Diet-2gna,Lofat,Lochol Lunch Meropenem 1gm Ivpb PHA 01/02/24 In Process (Merrem 1gm/ Ns) 12:00 Pharmacy [facility] 01/02/24 In Process Clarification: 11:52 Date of Service: Jan 02, 2024 Billing Provider: CLAIRE BARKER MD Common Visit Codes: [id number] INP/OBS CARE(HIGH) CLAIRE BARKER MD Jan 02, 2024 15:07
[2024-01-03 01:00] VITALS: BP 147/78; PULSE 81; RESP 18; TEMP 97.8; O2SAT 93
[2024-01-03 05:00] VITALS: BP 144/75; PULSE 74; RESP 18; TEMP 98.8; O2SAT 92
[2024-01-03 08:00] VITALS: RESP 17; O2SAT 97
[2024-01-03] MEDS: Juven Orange Powder PACKET 27.5gm PO SCH (08:00)
[2024-01-03 09:00] VITALS: BP 142/67; PULSE 78; RESP 16; TEMP 98.1; O2SAT 94
[2024-01-03] MEDS ORDERED: BACDST PO (11:34)
--- NOTE | 2024-01-03 11:37 | DVHDS2 ---
Discharge Summary Date of Admission Dec 30, 2023 at 23:07 Date of Discharge: Jan 03, 2024 Labs/Diagnostic Data: Laboratory Results Test 01/02/24 06:38 01/01/24 05:30 12/31/23 12:25 12/30/23 23:25 Sodium Level 141 mmol/L (136-145) Potassium Level 3.9 mmol/L (3.5-5.1) Chloride Level 108 mmol/L (98-107) Carbon Dioxide Level 27 mmol/L (20-31) Anion Gap 6 (5-15) Blood Urea Nitrogen 5 mg/dL (9-23) Creatinine 0.41 mg/dL (0.550-1.02) Glomerular Filtration Rate Calc 97 mL/min (>90) BUN/Creatinine Ratio 12.2 (10.0-20.0) Serum Glucose 82 mg/dL (74-106) Calcium Level 8.4 mg/dL (8.7-10.4) White Blood Count 8.2 10^3/uL (4.4-10.8) Red Blood Count 3.66 10^6/uL (4.0-5.20) Hemoglobin 10.8 g/dL (12.2-16.2) Hematocrit 34.2 % (36.0-46.0) Mean Corpuscular Volume 93.5 fL (80.0-100.0) Mean Corpuscular Hemoglobin 29.5 pg (28.0-32.0) Mean Corpuscular Hemoglobin Concent 31.5 g/dL (32.0-36.0) Red Cell Distribution Width 19.3 % (11.8-14.3) Platelet Count 281 10^3/uL (140-450) Mean Platelet Volume 7.4 fL (6.9-10.8) Neutrophils (%) (Auto) 80.0 % (37.0-80.0) Lymphocytes (%) (Auto) 9.9 % (10.0-50.0) Monocytes (%) (Auto) 9.0 % (0.0-12.0) Eosinophils (%) (Auto) 0.6 % (0.0-7.0) Basophils (%) (Auto) 0.5 % (0.0-2.0) Neutrophils # (Auto) 6.6 10 ^3/uL (1.6-8.6) Lymphocytes # (Auto) 0.8 10 ^3/uL (0.4-5.4) Monocytes # (Auto) 0.7 10 ^3/uL (0-1.3) Eosinophils # (Auto) 0 10 ^3/uL (0-0.8) Basophils # (Auto) 0 10 ^3/uL (0-0.2) Nucleated Red Blood Cells 0.1 % Magnesium Level 2.0 mg/dL (1.6-2.6) Total Bilirubin 0.4 mg/dL (0.2-1.0) Aspartate Amino Transferase (AST) 15 U/L (13-40) Alanine Aminotransferase (ALT) 16 U/L (7-40) Alkaline Phosphatase 40 U/L (46-116) Troponin I High Sensitivity 10 ng/L (</=34) Total Protein 5.6 g/dL (5.7-8.2) Albumin 3.4 g/dL (3.2-4.8) Influenza Type A Antigen Negative (Negative) Influenza Type B Antigen Negative (Negative) SARS-CoV-2 Antigen (Rapid) Negative (NEGATIVE) Lactic Acid Level 1.3 mmol/L (0.4-2.0) Test 12/30/23 20:22 12/30/23 13:41 Urine Color Light-yellow (Yellow) Urine Clarity Clear (Clear) Urine pH 5.5 (5.0-9.0) Urine Specific [place] > 1.050 (1.001-1.035) Urine Protein Trace (Negative) Urine Ketones Negative (Negative) Urine Blood 1+ /uL (Negative) Urine Nitrite 2+ (Negative) Urine Bilirubin Negative (Negative) Urine Urobilinogen Normal mg/dL (Negative) Urine Leukocyte Esterase 3+ /uL (Negative) Urine RBC 9 /hpf (0 - 4) Urine WBC 100 /hpf (0 - 5) Urine Squamous Epithelial Cells Few /hpf (<5) Urine Bacteria Few /hpf (None Seen) Urine Mucus Few (None Seen) Urine Glucose Normal mg/dL (Normal) Differential Total Cells Counted 100.0 (100) Neutrophils % (Manual) 92 (37.0-80.0) Band Neutrophils % (Manual) 0 Lymphocytes % (Manual) 3 (10.0-50.0) Monocytes % (Manual) 5 (0-12) Eosinophils % (Manual) 0 (0-7) Basophils % (Manual) 0 (0.0-2.0) Metamyelocytes % (manual) 0 Myelocytes % (Manual) 0 Promyelocytes % (Manual) 0 Blast Cells % (Manual) 0 Reactive Lymphocytes 0 Platelet Estimate Adequate Red Blood Cell Morphology Normal Lipase 39 U/L (12-53) Other Laboratory Tests 01/02/24 06:38 01/01/24 05:30 Brief Hx & Hospital Course: Final diagnoses: DIARRHEA UTI E coli ESBL HYPOKALEMIA SIRS ACUTE KIDNEY INJURY DIVERTICULOSIS LEFT HYDRONEPHROSIS ABDOMINAL PAIN PERIPHERAL NEUROPATHY HYPERTENSION 83-year-old female who was admitted with diarrhea and acute kidney injury and dehydration and UTI She was treated with IV antibiotics The urine culture came back E coli ESBL and therefore antibiotics were switched to meropenem She was given IV fluids which improved her hypotension and dehydration and kidney function is back to normal She is asymptomatic now and therefore she can be discharged home Take Bactrim DS twice a day for 7 days Resume other home medications Follow up with the PCP in as soon as possible Condition at Discharge: Stable Final Diagnosis/Problems List DIARRHEA UTI ESBL HYPOKALEMIA SIRS ACUTE KIDNEY INJURY DIVERTICULOSIS LEFT HYDRONEPHROSIS ABDOMINAL PAIN PERIPHERAL NEUROPATHY HYPERTENSION Discharge Disposition: Home SNF Discharge Will this Physician continue t: No Discharge Instruct/Medications Diet: Cardiac 2g Na,low cholest Activity: No Restrictions, As Tolerated Follow Up/Referral: PCP as soon as possible Medications: Bactrim ds twice a day for 7 days Resume home medication Discharge Statement: "Patient was advised to return to the ER or call 911 if any headaches, dizziness, shortness of breath, chest pain, abdominal pain, bleeding, fevers, or worsening of medical condition. Patient was counseled about treatment plan, medications, possible side effects, patientverbalized understanding. All questions were answered to the best of my ability. This discharge took greater then 30 minutes in planning, reviewing documentation, counseling the patient, and discussing with other team members." ASSESSMENT ASSESSMENT Assessment DIARRHEA UTI ESBL HYPOKALEMIA SIRS ACUTE KIDNEY INJURY DIVERTICULOSIS LEFT HYDRONEPHROSIS ABDOMINAL PAIN PERIPHERAL NEUROPATHY HYPERTENSION Date of Service: Jan 03, 2024 Billing Provider: CLAIRE BARKER MD Common Visit Codes: [id number] DISCH DAY >30min CLAIRE BARKER MD Jan 03, 2024 11:37
[2024-01-03 13:00] VITALS: BP 147/71; PULSE 80; RESP 20; TEMP 97.9; O2SAT 96
== END 2024-01-03 14:45 | disposition home or self-care (01) | DRG 872 ==
LOC: EDBD 13:12 → ER 13:12 → OVERFLOW 23:07 → EAST 12-31 14:27
PROVIDERS: ADMIT Nurse Practitioner; ATTEND Internal Medicine Geriatric Medicine
DX: A41.9 Sepsis, unspecified organism (principal); N13.6 Pyonephrosis; N17.9 Acute kidney failure, unspecified; I95.9 Hypotension, unspecified; E86.0 Dehydration; Z20.822 Contact with and (suspected) exposure to COVID-19; E87.6 Hypokalemia; K57.30 Diverticulosis of large intestine without perforation or abscess without bleeding; B96.20 Unspecified Escherichia coli [E. coli] as the cause of diseases classified elsewhere; G62.9 Polyneuropathy, unspecified; I10 Essential (primary) hypertension; Z90.49 Acquired absence of other specified parts of digestive tract
CPT/HCPCS: 36415; 71260; 74177; 80048; 80053; 81001; 83605; 83690; 83735; 84484; 85007; 85025; 85027; 87086; 87088; 87186; 87426; 87804; 93005; 99291; G0378; J2185; J2405; J3490; J7042

== ENCOUNTER 2024-03-13 12:12 | Emergency (ER) | payer OTHER ==
[~2024-03-13] VITALS: Ht 152.4 cm; Wt 53.6 kg
[~2024-03-13 12:12] MED LIST: BACDST PO; MELO7.5T7 PO; METH2.5T PO
--- NOTE | 2024-03-13 12:37 | ED.PDOC ---
Dilan. trauma (HPI) HPI Comments 83 y.o female with PMHx of Rheumatoid arthritis, presents to the ED for an evaluation of a mechanical fall today. Patient reports ambulating with her walker earlier today, was letting her dogs into the house when she lost primer and powder canning leader on the walker's handle and fell. Patient hit her head at the edge of her front door, states no LOC but presents with a laceration to the posterior side of her head and skin tear to the left upper arm. Patient complains of right hip and ankle pain. She denies any chest pain, dizziness, lightheadedness, nausea, vomiting, fever, or chills. Patient is alert and oriented x4. Patient was assisted up from the floor by paramedics, states she was unable to bear any weight to right leg so son brought her to the ED for further workup. Chief Complaint: Fall Injury Time Seen by MD: 12:25 Primary Care Provider: SEN Reviewed notes: Nurses Notes, Medications, Allergies Allergies: Coded Allergies: Banana (Verified Allergy, Mild, 12/31/23) Cabbage (Verified Allergy, Mild, 12/31/23) Nystatin (Verified Allergy, Mild, 12/31/23) liquid Home Meds Active Scripts Sulfamethoxazole W/Trimethopri (Bactrim Ds Tablet) 1 Tab Tb, 1 TAB PO BID for 7 Days, #14 TAB Prov:CLAIRE BARKER MD 01/03/24 Reported Medications Methotrexate (Methotrexate) Unknown Strength Tab, PO QWEEKLY, #32 TAB 2 Refills 01/01/24 Meloxicam (Meloxicam) Unknown Strength Tab, PO DAILY, #30 TAB 2 Refills 01/01/24 Information Source: Patient Mode of Arrival: Wheelchair Severity: Moderate Timing: Hours Duration: Since onset Location: (L) Ankle, (R) Hip Location of laceration: Head Mechanism: Fall Associated signs and symtoms: Other Past Medical History PAST MEDICAL HISTORY: Arthritis Past Medical History (Other): Non healing ulcer to left ankle and chronic right shoulder pain Surgical History: Cholecystectomy, Tonsillectomy MANAGER ENGAGEMENT History: Denies all MANAGER ENGAGEMENT Hx Family History Family History: Unknown Social History Smoker: Non-Smoker Alcohol: Denies ETOH Use Drugs: Denies Drug Use Lives In: Home Constitutional: denies: chills, diaphoresis, fatigue, fever, malaise, sweats, weakness, others EENTM: denies: blurred vision, double vision, ear bleeding, ear discharge, ear drainage, ear pain, ear ringing, eye pain, eye redness, hearing loss, mouth pain, mouth swelling, nasal discharge, nose bleeding, nose congestion, nose pain, photophobia, tearing, throat pain, throat swelling, voice changes, others Respiratory: denies: cough, hemoptysis, orthopnea, SOB at rest, shortness of breath, SOB with excertion, stridor, wheezing, others Cardiovascular: denies: chest pain, dizzy spells, diaphoresis, Dyspnea on exertion, edema, irregular heart beat, left arm pain, lightheadedness, palpitat ions, PND, syncope, others Gastrointestinal: denies: abdomen distended, abdominal pain, blood streaked bow els, constipated, diarrhea, dysphagia, difficulty swallowing, hematemesis, melena, nausea, poor appetite, poor fluid intake, rectal bleeding, rectal pain, vomiting, others Genitourinary: denies: abnormal vagina bleeding, burning, dyspareunia, dysuria, flank pain, frequency, hematuria, incontinence, pain, , vagina discharge, urgency, others Neurological: denies: dizziness, fainting, headache, left sided numbness, left sided weakness, numbness, paresthesia, pre-existing deficit, right sided numbness, right sided weakness, seizure, speech problems, tingling, tremors, weakness, others Musculoskeletal: reports: others (right hip and ankle pain ); denies: back pain, gout, joint pain, joint swelling, muscle pain, muscle stiffness, neck pain Integumetry: reports: laceration (posterior side of the head ), others (skin tear to the left upper arm ); denies: bruises, change in color, change in hair/nails, dryness, lesions, lumps, rash, wounds Allergic/Immunocompromised: denies: Difficulty Healing, Frequent Infections, Hives, Itching, others Hematologic/Lymphatic: denies: anemia, blood clots, easy bleeding, easy bruising, swollen glands, others Endocrine: denies: excessive hunger, excessive sweating, excessive thirst, excessive urination, flushing, intolerance to cold, intolerance to heat, unexplained weight gain, unexplained weight loss, others Psychiatric: denies: anxiety, bipolar disorder, depression, hopeless, panic disorder, schizophrenia, sleepless, suicidal, others Physical Exam General Appearance: No Apparent Distress, Normal HEENT: Normal ENT Inspection, Pharynx Normal, TMs Normal Neck: Full Range of Motion, Non-Tender, Normal, Normal Inspection Respiratory: Chest Non-Tender, Lungs Clear, No Accessory Muscle Use, No Respiratory Distress, Normal Breath Sounds Cardiovascular: No Edema, No JVD, No Murmur, No Gallop, Normal Peripheral Pulses, Regular Rate/Rhythm Breast Exam: Deferred Gastrointestinal: No Organomegaly, Non Tender, No Pulsatile Mass, Normal Bowel Sounds, Soft Genitalia: Deferred Pelvic: Deferred Rectal: Deferred Extremities: No calf tenderness, Normal capillary refill, Normal inspection, Normal range of motion, Non-tender, No pedal edema Musculoskeletal : Apperance: Normal Neurologic: Alert, physical instructor II-XII nml as Tested, No Motor Deficits, Normal Affect, Normal Mood, No Sensory Deficits, Other (Right ankle without any significant tenderness to palpation, full range of motion, no swelling, no evidence of trauma. Right hip without any significant tenderness to palpation, full range of motion, no swelling, no evidence of trauma. Patient able to ambulate with a walker in the ER.) Cerebellar Function: Normal Reflexes: Normal Skin: Dry, Normal Color, Warm, Other (2 cm linear laceration to the occipital scalp, hemostatic, no significant hematoma or step-off, no tenderness to palpation) Lymphatic: No Adenopathy Was a procedure done? Was a procedure done?: Yes Sedation Sedation?: No Laceration Repair : Length 2cm Laceration Repair Wound Comple: epidermis/dermis repair Laceration Repair: Sloane (2) Informed consent obtained: Yes Risks, benefits, and alternati: Yes Notes Tolerated well, no complications Other Procedure Informed consent obtained: Yes Risks, benefits, and alternati: Yes Differential Diagnosis Multiple Trauma: Closed Head Injury, Abrasions, Contusion, Hematoma, Laceration X-Ray, Labs, Meds, VS Vital Signs Date Time Temp Pulse Resp B/P (MAP) Pulse Ox O2 Delivery O2 Flow Rate FiO2 03/13/24 12:16 97.8 79 20 140/74 (96) 99 Current Medications Medications (Trade) Dose Ordered Sig/Anette Route Start Time Stop Time Status Last Admin Diphtheria/ Tetanus/Acell Pertussis (Boostrix T-Dap) 0.5 ml ONCE ONCE IM 03/13/24 12:45 03/13/24 12:46 DC 03/13/24 13:51 [place] [id number] Ph: [phone] DIAGNOSTIC IMAGING Diagnostic Imaging Report : [id number] Signed PATIENT: NICOLE JOHNSON ACCT: [id number] UNIT: [id number] : 1940 LOC: ER ROOM / BED: / AGE / SEX: 83 / F ADM STATUS: REG ER SERVICE 1237 ORDERING PHYSICIAN: BK BASS MD PROCEDURE(s): RHIP - R HIP COMPLETE XRAY REASON: fall ORDER NUMBER(s): [id number], ACCESSION NUMBER(s): [id number] CLINICAL INDICATION: fall TECHNIQUE: XY right HIP COMPLETE XRAY Comparison: None FINDINGS/IMPRESSION: There is no evidence of acute fracture or dislocation. Partially visualized spine hardware. Soft tissues are unremarkable. ATED BY: DELFIN LOMELI MD DICTATED DATE/TIME: 03/13/24 1326 SIGNED BY: DELFIN LOMELI MD SIGNED DATE/TIME: 03/13/24 1326 CC: [place] [address] Ph: [phone] DIAGNOSTIC IMAGING Diagnostic Imaging Report : [id number] Signed PATIENT: NICOLE JOHNSON ACCT: [id number] UNIT: [id number] : 1940 LOC: ER ROOM / BED: / AGE / SEX: 83 / F ADM STATUS: REG ER SERVICE 1237 ORDERING PHYSICIAN: BK BASS MD PROCEDURE(s): RANKL - R ANKLE 3 VIEW REASON: fall ORDER NUMBER(s): [id number], ACCESSION NUMBER(s): [id number] CLINICAL INDICATION: fall TECHNIQUE: XY R ANKLE 3 VIEW right Comparison: None FINDINGS/IMPRESSION: There is no evidence of acute fracture or dislocation. Soft tissues are unremarkable. ATED BY: DELFIN LOMELI MD DICTATED DATE/TIME: 02/02/25 1325 SIGNED BY: DELFIN LOMELI MD SIGNED DATE/TIME: 03/13/241324 CC: [place] [id number] Ph: [phone] DIAGNOSTIC IMAGING Diagnostic Imaging Report : [id number] Signed PATIENT: NICOLE JOHNSON ACCT: [id number] UNIT: [id number] : 1940 LOC: ER ROOM / BED: / AGE / SEX: 83 / F ADM STATUS: REG ER SERVICE 1237 ORDERING PHYSICIAN: BK BASS MD PROCEDURE(s): HWOCT - HEAD WITHOUT CONTRAST REASON: fall ORDER NUMBER(s): [id number], ACCESSION NUMBER(s): [id number] CLINICAL INFORMATION: 83 years old, Female; fall injury. TECHNIQUE: Axial imaging was obtained through the brain without contrast. Coronal and sagittal reformatted images were obtained, reviewed, and stored. Images were reviewed in brain and bone windows. All CT scans at this medical facility are performed using dose modulation techniques as appropriate to a performed exam including the following: Automated exposure control was utilized; adjustment of the MA and/or KV according to patient size; and use of iterative reconstruction technique. CTDIvol = 52.68 mGy DLP = 931.77 mGy-cm COMPARISON: None FINDINGS: There is no acute intracranial hemorrhage or extraaxial fluid collection. No mass effect or midline shift. Scattered areas of hypoattenuation are seen in the periventricular and subcortical white matter, which are nonspecific but most likely sequelae of small vessel ischemic disease.The ventricles and sulci are within normal limits in size for age. Basal cisterns are patent. The calvarium is unremarkable. Paranasal sinuses and mastoid air cells are clear. IMPRESSION: No CT evidence of acute intracranial abnormality. ATED BY: DELFIN JOHNSON DO DICTATED DATE/TIME: 03/13/241257 SIGNED BY: DELFIN JOHNSON DO SIGNED DATE/TIME: 03/13/241257 CC: [address] [id number] Ph: [phone] DIAGNOSTIC IMAGING Diagnostic Imaging Report : [id number] Signed PATIENT: NICOLE JOHNSON ACCT: [id number] UNIT: [id number] : 1940 LOC: ER ROOM / BED: / AGE / SEX: 83 / F ADM STATUS: REG ER SERVICE 1237 ORDERING PHYSICIAN: BK BASS MD PROCEDURE(s): CS2 - CERVICAL WITHOUT CONTRAST REASON: fall ORDER NUMBER(s): [id number], ACCESSION NUMBER(s): [id number] CLINICAL HISTORY: fall injury. COMPARISON: None TECHNIQUE: Axial CT images of the cervical spine were obtained without IV contrast. Coronal and sagittal reformatted images were obtained. All CT scans at this medical facility are performed using dose modulation techniques as appropri ate to a performed exam including the following: Automated exposure control was utilized; adjustment of the MA and/or KV according to patient size; and use of iterative reconstruction technique. CTDIvol = 2 22.08 mGy DLP = 503.42 mGy-cm FINDINGS: Bones: Mild retrolisthesis of C3 on C4. Mild anterolisthesis of C7 on T1. Vertebral body heights are maintained. Posterior elements are intact. No acute fracture. Multilevel severe disc space narrowing with associated endplate sclerosis and endplate spurring multilevel facet hypertrophy and uncinate hypertrophy with areas of moderate to severe neural foraminal stenosis. Paraspinal soft tissues: Prevertebral and paraspinal soft tissues are unremarkable. Other: Dense atherosclerotic calcification of the carotid bifurcations bilaterally. IMPRESSION: 1. No evidence of acute fracture in the cervical spine. 2. 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 3. Degenerative disc disease and facet/ uncinate disease in the cervical spine as detailed above. 4. Additional findings as described above. ATED BY: DELFIN JOHNSON DO DICTATED DATE/TIME: 03/13/24 1303 SIGNED BY: DELFIN JOHNSON DO SIGNED DATE/TIME: 03/13/24 130 CC: X-Ray, Labs, Meds, VS Comment Patient presents with constellation of symptoms most consistent with a strain/sprain. Vital signs stable, afebrile. Physical exam as above consistent with strain/sprain and without evidence of significant pathology or neurovascular compromise. Based off of the history, physical exam, and workup, I considered but doubt fracture, dislocation, septic joint, open fracture, compartment syndrome, or other significant neurovascular injury. The patient was also informed that the x-ray reading is preliminary and will be reviewed by radiologist at a later time. The patient also understands the possibility of a "hidden fracture," and the importance of following up with their primary care physician within 2-3 days for re-evaluation and for a possible referral to an orthopedist, outpatient MRI, and/or physical therapy. The patient was also instructed on using [id number] medications to help control pain, resting the affected area, using ice/heat packs, and compressing/elevating the area to help with swelling. The patient was instructed to return to emergency department for worsening of symptoms, numbness, weakness, fevers, p.o. intolerance, or any other concerning symptoms. Patient expressed understanding and was discharged home in stable condition in no distress. Time of 1ST Reevaluation: 12:31 Reevaluation 1ST: Unchanged Patient Education/Counseling: Diagnosis, Treatment, Prognosis Family Education/Counseling: No Family Present Departure 1 Departure Time of Disposition: 16:43 Impression: Primary Impression: Fall Additional Impression: Laceration Disposition: 01 HOME / SELF CARE / HOMELESS Condition: Stable Critical Care Note Critical Care Time?: No Stability Stability form required: No I personally scribed for BK BASS MD ([facility] on 03/13/24 at 12:37. E lectronically submitted by Nurys Sifuentes ([facility]). I personally scribed for BK BASS MD ([facility]) on 03/13/24 at 13:37. Carlita ctronically submitted by Nurys Sifuentes ([facility]). BK BASS MD Mar 13, 2024 12:37
--- NOTE | 2024-03-13 13:00 | DVH ---
CLINICAL INFORMATION: 83 years old, Female; fall injury. TECHNIQUE: Axial imaging was obtained through the brain without contrast. Coronal and sagittal refor matted images were obtained, reviewed, and stored. Images were reviewed in brain and bone windows. A ll CT scans at this medical facility are performed using dose modulation techniques as appropriate to a performed exam including the following: Automated exposure control was utilized; adjustment of the MA and/or KV according to patient size; and use of iterative reconstruction technique. CTDIvol = 52.68 mGy DLP = 931.77 mGy-cm COMPARISON: None FINDINGS: There is no acute intracranial hemorrhage or extraaxial fluid collection. No mass effect o r midline shift. Scattered areas of hypoattenuation are seen in the periventricular and subcortical w angel matter, which are nonspecific but most likely sequelae of small vessel ischemic disease.The vent ricles and sulci are within normal limits in size for age. Basal cisterns are patent. The calvari um is unremarkable. Paranasal sinuses and mastoid air cells are clear. IMPRESSION: No CT evidence of acute intracranial abnormality.
--- NOTE | 2024-03-13 13:05 | DVH ---
CLINICAL HISTORY: fall injury. COMPARISON: None TECHNIQUE: Axial CT images of the cervical spine were obtained without IV contrast. Coronal and sagit jh reformatted images were obtained. All CT scans at this medical facility are performed using dose modulation techniques as appropriate to a performed exam including the following: Automated exposure control was utilized; adjustment of the MA and/or KV according to patient size; and use of iterative reconstruction technique. CTDIvol = 2 22.08 mGy DLP = 503.42 mGy-cm FINDINGS: Bones: Mild retrolisthesis of C3 on C4. Mild anterolisthesis of C7 on T1. Vertebral body heights are maintained. Posterior elements are intact. No acute fracture. Multilevel severe disc space narrowing with associated endplate sclerosis and endplate spurring multilevel facet hypertrophy and uncinate hy pertrophy with areas of moderate to severe neural foraminal stenosis. Paraspinal soft tissues: Prevertebral and paraspinal soft tissues are unremarkable. Other: Dense atherosclerotic calcification of the carotid bifurcations bilaterally. IMPRESSION: 1. No evidence of acute fracture in the cervical spine. 2. 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 3. Degenerative disc disease and facet/ uncinate disease in the cervical spine as detailed above. 4. Additional findings as described above.
--- NOTE | 2024-03-13 13:27 | DVH ---
CLINICAL INDICATION: fall TECHNIQUE: XY R ANKLE 3 VIEW right Comparison: None FINDINGS/IMPRESSION: There is no evidence of acute fracture or dislocation. Soft tissues are unremarkable.
--- NOTE | 2024-03-13 13:28 | DVH ---
CLINICAL INDICATION: fall TECHNIQUE: XY right HIP COMPLETE XRAY Comparison: None FINDINGS/IMPRESSION: There is no evidence of acute fracture or dislocation. Partially visualized spine hardware. Soft tissues are unremarkable.
[2024-03-13] MEDS: TETANUS-DIPTH-ACEL PERTUSSIS 0.5ML SYR Tdap IM ONE (13:51)
[2024-03-13 16:51] VITALS: BP 126/74; PULSE 76; RESP 16; TEMP 97.8; O2SAT 97
== END 2024-03-13 16:54 | disposition home or self-care (01) ==
LOC: ER 12:18
DX: S01.01XA Laceration without foreign body of scalp, initial encounter (principal); S41.112A Laceration without foreign body of left upper arm, initial encounter; M06.9 Rheumatoid arthritis, unspecified; Z90.49 Acquired absence of other specified parts of digestive tract; Z90.89 Acquired absence of other organs; Z88.1 Allergy status to other antibiotic agents; Z91.018 Allergy to other foods; W01.198A Fall on same level from slipping, tripping and stumbling with subsequent striking against other object, initial encounter; Y93.89 Activity, other specified; Y92.89 Other specified places as the place of occurrence of the external cause; Y99.8 Other external cause status
CPT/HCPCS: 12001; 70450; 72125; 73502; 73610; 90471; 90715